=== PATIENT | female | born 1955 | race Caucasian/White ===

== ENCOUNTER 2018-04-30 23:31 | Inpatient (IN) ==
[2018-05-01] MEDS ORDERED: *HR* Labetalol 20 MG/4 ML SYRINGE IVP ONE ×2 (00:09→00:52)
--- NOTE | 2018-05-01 00:18 | Emergency Department Note ---
Disposition Clinical Impression: Bigpatel, Hypertensive urgency Disposition: Admitted As Inpatient Condition: Good Referrals: Pillo Stokes DO [Primary Care Provider] - Forms: ED Satisfaction Letter Arrhythmia/Palpitations HPI - General Chief Complaint: ED Arrhythmia/Palpitations Stated Complaint: Heart Palpitations Time Seen by Provider: 04/30/18 23:33 Source: family Mode of arrival: private vehicle Limitations: no limitations Nursing Notes Reviewed: Yes Vital Signs Reviewed: Yes - History of Present Illness HPI Narrative: 63-year-old female history of hypertension although not currently treated presenting with a complaint of palpitations. Symptoms began at 9:30 this evening. Reports she was at rest and then started feeling a pounding sensation in her chest. No prior history of arrhythmia or CAD. Denies any recent changes in medications with the exception of stopping her antihypertensive several months ago after normal readings. She was sick with a URI last week that resolved. States that whenever she feels these palpitations she feels lightheaded but no syncopal episodes. No other complaints. Pt Subjective Complaint: palpitations Onset (ago): hour(s) Duration: constant Context: occurred during rest Associated symptoms: Reports: near-syncope. Denies: chest pain, shortness of breath, syncope, nausea, vomiting, diaphoresis - Related Data Home Medications Medication Instructions Recorded Confirmed Aspirin [Lo-Dose Aspirin EC] 81 mg PO DAILY 01/17/17 01/17/17 Cholecalciferol (D-3) [Vitamin D] 5,000 unit PO DAILY 01/17/17 01/17/17 Estradiol [Yuvafem] 10 mcg VG QWEEK 01/17/17 01/17/17 Omeprazole [PriLOSEC] 40 mg PO DAILY 01/17/17 01/17/17 Sucralfate [Carafate] 1 gm PO QIDAC 01/17/17 01/17/17 Valsartan [Diovan] 80 mg PO DAILY 01/17/17 01/17/17 Previous Rx's Medication Instructions Recorded Docusate [Colace] 100 mg PO BID #30 capsule 01/17/17 OxyCODONE/APAP 5/325 [Percocet 1 each PO Q4HR PRN #30 tablet 01/17/17 5/325 MG] Allergies Allergy/AdvReac Type Severity Reaction Status Date / Time gabapentin AdvReac Palpitation Verified 05/01/18 00:20 s All systems ED: reviewed and negative except as stated. Constitutional: Denies: fever Cardiovascular: Reports: palpitations. Denies: chest pain Respiratory: Denies: cough, dyspnea Gastrointestinal: Denies: abdominal pain, nausea, vomiting Past Medical History - Past Medical History Attestation: Yes The following information was validated with the patient. Source: patient Medical history: Reports: hyperlipidemia, hypertension Surgical history: Reports: orthopedic, other Psychiatric history: Reports: no psych history - Social History Smoking Status: Never smoker Smokeless Tobacco Status: No Alcohol use: Reports: none Drug use: Reports: none Physical Exam - General Limitations: no limitations General appearance: alert, in no apparent distress - Head Head exam: atraumatic, normocephalic, normal inspection - Eye Eye exam: Present: normal appearance - ENT ENT exam: normal exam - Neck Neck exam: Present: normal inspection - Chest Chest inspection: Present: normal inspection, symmetric chest wall rise - Respiratory Respiratory exam: Present: normal lung sounds bilaterally - Cardiovascular Cardiovascular exam: Present: regular rate, irregular rhythm, normal heart sounds - Abdominal Exam Abdominal exam: Present: soft, Non-Tender. Absent: tenderness, distention, guarding, rigidity - Extremities Exam Extremities exam: Present: normal inspection, full ROM - Expanded Upper Extremity Exam Shoulder exam: Present: normal inspection, full ROM Arm exam: Present: normal inspection, full ROM Elbow exam: Present: normal inspection, full ROM Forearm/Wrist exam: Present: normal inspection, full ROM Hand exam: Present: normal inspection, full ROM - Expanded Lower Extremity Exam Hip/Pelvis exam: Present: normal inspection, full ROM Upper leg exam: Present: normal inspection, full ROM Knee exam: Present: normal inspection, full ROM Lower leg exam: Present: normal inspection, full ROM Ankle exam: Present: normal inspection, full ROM Foot/toe exam: Present: normal inspection, full ROM - Skin Skin exam: Present: warm, dry Course Course Narrative: Patient seen and examined. Vital signs reviewed. Plan for EKG, chest x-ray as well as labs including troponin, magnesium, TSH. - Reevaluation(s) Reevaluation #1: The patient continues to have rebound hypertension after multiple doses of labetalol. - Consultations Consultation #1: I discussed this case with the on-call newspaper carrier Dr. Soto. Discussed the patient's history, vitals, EKG and current workup. Concern is ST elevation in aVR with what appears to be mild diffuse depressive features. Plan to send the EKG for cardiology review. Although this is a potential STEMI equivalent, does not recommend any acute intervention as the patient's only symptom at this time is palpitations. Recommends antihypertensive control at this point with Lopressor or labetalol. Vital Signs Temperature 98.1 F 04/30/18 23:34 Pulse Rate 57 04/30/18 23:34 Respiratory Rate 18 04/30/18 23:34 Blood Pressure 204/99 04/30/18 23:34 O2 Sat by Pulse Oximetry 100 04/30/18 23:34 Temperature 98.1 F 04/30/18 23:34 Pulse Rate 58 05/01/18 01:19 Respiratory Rate 16 05/01/18 01:19 Blood Pressure 187/117 05/01/18 01:19 O2 Sat by Pulse Oximetry 100 05/01/18 01:19 Oxygen Delivery Oxygen Delivery Room Air Arrhythmia/Palpitations - MDM Narrative Medical decision making narrative: 63-year-old female presenting with palpitations found to have bigeminy. She is hemodynamically stable. Her workup is grossly unremarkable with the exception of a questionable nodule on chest x-ray. This case was discussed with cardiology. Recommended hypertensive management. She received 2 doses of labetalol and then was started on a nicardipine drip for refractory hypertension. Received oral potassium as well. She is admitted to the hospitalist service for further management. - Lab Data Lab results reviewed: Yes I reviewed the patient's lab results. Result diagrams: 04/30/18 23:39 04/30/18 23:39 Lab Results 04/30/18 04/30/18 04/30/18 Range/Units 23:39 23:39 23:39 WBC 9.9 (4.3-11.1) K/mcL RBC 4.99 H (3.82-4.97) M/mcL Hgb 14.6 (11.5-15.4) g/dL Hct 44.5 (35.3-44.9) % MCV 89.2 (83.0-100.0) fL MCH 29.3 (28.0-33.3) pg MCHC 32.8 (31.6-35.5) g/dL RDW 12.8 (11.5-14.5) % Plt Count 366 (140-400) K/mcL MPV 10.2 (9.4-12.4) fL Immature Gran % 0.2 (0-4) % Seg Neutrophils % 55.8 % Lymphocytes % 36.0 % Monocytes % 6.3 % Eosinophils % 1.0 % Basophils % 0.7 % Neutrophils # 5.5 (1.6-8.9) K/mcL Lymphocytes # 3.6 (0.6-4.6) K/mcL Monocytes # 0.6 (0.0-1.3) K/mcL Eosinophils # 0.1 (0.0-0.6) K/mcL Basophils # 0.1 (0.0-0.2) K/mcL PT (9.4-12.1) Seconds INR APTT (26.0-36.0) Seconds Sodium 142 (136-145) mEq/L Potassium 3.2 L (3.5-5.1) mEq/L Chloride 103 (98-107) mEq/L Carbon Dioxide 25 (23-29) mEq/L BUN 15 (8-23) mg/dL Creatinine 0.85 (0.60-1.20) mg/dL Est GFR ( Amer) > 60 (> 60) Est GFR (Non-Af Amer) > 60 (> 60) BUN/Creatinine Ratio 18 (6-26) Glucose 217 H (70-105) mg/dL Calculated Osmolality 301 H (280-300) Calcium 9.9 (8.6-10.3) mg/dL Magnesium (1.6-2.6) mg/dL Troponin I < 0.03 (< 0.04) ng/mL TSH 4.117 (0.340-5.600) mcIU/mL Specimen Rejected Volume 05/01/18 05/01/18 Range/Units 00:00 00:28 WBC (4.3-11.1) K/mcL RBC (3.82-4.97) M/mcL Hgb (11.5-15.4) g/dL Hct (35.3-44.9) % MCV (83.0-100.0) fL MCH (28.0-33.3) pg MCHC (31.6-35.5) g/dL RDW (11.5-14.5) % Plt Count (140-400) K/mcL MPV (9.4-12.4) fL Immature Gran % (0-4) % Seg Neutrophils % % Lymphocytes % % Monocytes % % Eosinophils % % Basophils % % Neutrophils # (1.6-8.9) K/mcL Lymphocytes # (0.6-4.6) K/mcL Monocytes # (0.0-1.3) K/mcL Eosinophils # (0.0-0.6) K/mcL Basophils # (0.0-0.2) K/mcL PT 12.2 H (9.4-12.1) Seconds INR 1.1 APTT 35.2 (26.0-36.0) Seconds Sodium (136-145) mEq/L Potassium (3.5-5.1) mEq/L Chloride (98-107) mEq/L Carbon Dioxide (23-29) mEq/L BUN (8-23) mg/dL Creatinine (0.60-1.20) mg/dL Est GFR ( Amer) (> 60) Est GFR (Non-Af Amer) (> 60) BUN/Creatinine Ratio (6-26) Glucose (70-105) mg/dL Calculated Osmolality (280-300) Calcium (8.6-10.3) mg/dL Magnesium 2.1 (1.6-2.6) mg/dL Troponin I (< 0.04) ng/mL TSH (0.340-5.600) mcIU/mL Specimen Rejected - Radiology Data Radiology results reviewed: Yes I reviewed the patient's radiology results. Chest X-Ray 04/30/18 23:39 IMPRESSION: No acute cardiopulmonary disease. Small irregular nodule projected in the lateral left lung as above. This may be related to the anterior left 3rd costochondral junction. If a prior chest x-ray is available, comparison would be helpful. D/ / Reagan Vickers MD / Reagan Vickers MD Interpreting Provider: Reagan Vickers MD - EKG Data EKG attestation: Yes I reviewed and interpreted this EKG. EKG results narrative: EKG demonstrates bigeminy with a rate of 108. Normal axis. Normal R-wave progression. There is a [address] elevation in lead aVR with diffuse ST depression. No prior EKG for comparison. S.Juana - Audie Situation: Demographics, MOA Background: Presenting Complaint, Relevant PMH, Meds, & Allergies Assessment: Vital Signs, Course and respsone to treatment, Exam Concerns, Patient/Family Expectation, Pertinant Lab Results Recommendation: Barrier(s) to disposition, Recommendation based on pending studies, treatments, or consults SConcha Report Given to: Dr. Sheridan Bronson Repor Time: 01:38
[2018-05-01 00:24] LABS: Basophils # 0.1 K/mcL (0.0-0.2); Basophils % 0.7 %; Eosinophils # 0.1 K/mcL (0.0-0.6); Hematocrit 44.5 % (35.3-44.9); Hemoglobin 14.6 g/dL (11.5-15.4); Immature Granulocytes % 0.2 % (0-4); Lymphocytes # 3.6 K/mcL (0.6-4.6); Mean Corpuscular HGB Conc 32.8 g/dL (31.6-35.5); Mean Corpuscular Hemoglobin 29.3 pg (28.0-33.3); Mean Corpuscular Volume 89.2 fL (83.0-100.0); Mean Platelet Volume 10.2 fL (9.4-12.4); Monocytes # 0.6 K/mcL (0.0-1.3); Monocytes % 6.3 %; Neutrophils # 5.5 K/mcL (1.6-8.9); Platelet Count 366 K/mcL (140-400); Red Blood Count 4.99 M/mcL (3.82-4.97); Red Cell Distribution Width 12.8 % (11.5-14.5); Segmented Neutrophils % 55.8 %
[2018-05-01 00:34] LABS: BUN/Creatinine Ratio 18 (6-26); Blood Urea Nitrogen 15 mg/dL (8-23); Calcium 9.9 mg/dL (8.6-10.3); Carbon Dioxide 25 mEq/L (23-29); Chloride 103 mEq/L (98-107); Glucose 217 mg/dL (70-105); Osmolality,Calculated 301 (280-300); Potassium 3.2 mEq/L (3.5-5.1); Sodium 142 mEq/L (136-145); eGFR For Non-African Americans > 60 (> 60)
[2018-05-01 00:36] LABS: Troponin I < 0.03 ng/mL (< 0.04)
[2018-05-01 00:47] LABS: Thyroid Stimulating Hormone 4.117 mcIU/mL (0.340-5.600)
[2018-05-01 00:47] LABS: INR 1.1; Prothrombin Time 12.2 Seconds (9.4-12.1)
[2018-05-01 00:49] LABS: Activated Partial Thrombo Time 35.2 Seconds (26.0-36.0)
[2018-05-01] MEDS ORDERED: Ondansetron 4 MG/2 ML VIAL IVP ONE (00:52)
--- NOTE | 2018-05-01 01:33 | Emergency Department Note ---
Disposition Clinical Impression: Bigeminy, Hypertensive urgency Disposition: Admitted As Inpatient Condition: Good General Adult HPI - General Chief complaint: ED Arrhythmia/Palpitations Stated complaint: Heart Palpitations Time Seen by Provider: 04/30/18 23:33 Source: family Mode of arrival: private vehicle Limitations: no limitations - History of Present Illness Pain Scale: 0 - Related Data Home Medications Medication Instructions Recorded Confirmed RX: Aspirin [Lo-Dose Aspirin EC] 81 mg PO DAILY 01/17/17 01/17/17 RX: Cholecalciferol (D-3) [Vitamin 5,000 unit PO DAILY 01/17/17 01/17/17 D] RX: Estradiol [Yuvafem] 10 mcg VG QWEEK 01/17/17 01/17/17 RX: Omeprazole [PriLOSEC] 40 mg PO DAILY 01/17/17 01/17/17 RX: Sucralfate [Carafate] 1 gm PO QIDAC 01/17/17 01/17/17 RX: Valsartan [Diovan] 80 mg PO DAILY 01/17/17 01/17/17 Previous Rx's Medication Instructions Recorded Docusate [Colace] 100 mg PO BID #30 capsule 01/17/17 OxyCODONE/APAP 5/325 [Percocet 1 each PO Q4HR PRN #30 tablet 01/17/17 5/325 MG] Allergies Allergy/AdvReac Type Severity Reaction Status Date / Time gabapentin AdvReac Palpitation Verified 05/01/18 00:20 s Constitutional: Denies: fever Cardiovascular: Reports: palpitations. Denies: chest pain Respiratory: Denies: cough, dyspnea Gastrointestinal: Denies: abdominal pain, nausea, vomiting Past Medical History - Past Medical History Medical history: Reports: hyperlipidemia, hypertension Surgical history: Reports: orthopedic, other Psychiatric history: Reports: no psych history - Social History Smoking Status: Never smoker Smokeless Tobacco Status: No Alcohol use: Reports: none Drug use: Reports: none Physical Exam - General Limitations: no limitations General appearance: alert, in no apparent distress Course Vital Signs Temperature 98.1 F 04/30/18 23:34 Pulse Rate 57 04/30/18 23:34 Respiratory Rate 18 04/30/18 23:34 Blood Pressure 204/99 04/30/18 23:34 O2 Sat by Pulse Oximetry 100 04/30/18 23:34 Temperature 98.7 F 05/01/18 02:21 Pulse Rate 86 05/01/18 04:01 Respiratory Rate 14 05/01/18 04:01 Blood Pressure 87/54 05/01/18 04:01 O2 Sat by Pulse Oximetry 96 05/01/18 04:01 Oxygen Delivery Oxygen Delivery Room Air Medical Decision Making - Lab Data Result diagrams: 04/30/18 23:39 04/30/18 23:39 Lab Results 04/30/18 04/30/18 04/30/18 Range/Units 23:39 23:39 23:39 WBC 9.9 (4.3-11.1) K/mcL RBC 4.99 H (3.82-4.97) M/mcL Hgb 14.6 (11.5-15.4) g/dL Hct 44.5 (35.3-44.9) % MCV 89.2 (83.0-100.0) fL MCH 29.3 (28.0-33.3) pg MCHC 32.8 (31.6-35.5) g/dL RDW 12.8 (11.5-14.5) % Plt Count 366 (140-400) K/mcL MPV 10.2 (9.4-12.4) fL Immature Gran % 0.2 (0-4) % Seg Neutrophils % 55.8 % Lymphocytes % 36.0 % Monocytes % 6.3 % Eosinophils % 1.0 % Basophils % 0.7 % Neutrophils # 5.5 (1.6-8.9) K/mcL Lymphocytes # 3.6 (0.6-4.6) K/mcL Monocytes # 0.6 (0.0-1.3) K/mcL Eosinophils # 0.1 (0.0-0.6) K/mcL Basophils # 0.1 (0.0-0.2) K/mcL PT (9.4-12.1) Seconds INR APTT (26.0-36.0) Seconds Sodium 142 (136-145) mEq/L Potassium 3.2 L (3.5-5.1) mEq/L Chloride 103 (98-107) mEq/L Carbon Dioxide 25 (23-29) mEq/L BUN 15 (8-23) mg/dL Creatinine 0.85 (0.60-1.20) mg/dL Est GFR ( Amer) > 60 (> 60) Est GFR (Non-Af Amer) > 60 (> 60) BUN/Creatinine Ratio 18 (6-26) Glucose 217 H (70-105) mg/dL Calculated Osmolality 301 H (280-300) Calcium 9.9 (8.6-10.3) mg/dL Magnesium (1.6-2.6) mg/dL Troponin I < 0.03 (< 0.04) ng/mL TSH 4.117 (0.340-5.600) mcIU/mL Specimen Rejected Volume 05/01/18 05/01/18 Range/Units 00:00 00:28 WBC (4.3-11.1) K/mcL RBC (3.82-4.97) M/mcL Hgb (11.5-15.4) g/dL Hct (35.3-44.9) % MCV (83.0-100.0) fL MCH (28.0-33.3) pg MCHC (31.6-35.5) g/dL RDW (11.5-14.5) % Plt Count (140-400) K/mcL MPV (9.4-12.4) fL Immature Gran % (0-4) % Seg Neutrophils % % Lymphocytes % % Monocytes % % Eosinophils % % Basophils % % Neutrophils # (1.6-8.9) K/mcL Lymphocytes # (0.6-4.6) K/mcL Monocytes # (0.0-1.3) K/mcL Eosinophils # (0.0-0.6) K/mcL Basophils # (0.0-0.2) K/mcL PT 12.2 H (9.4-12.1) Seconds INR 1.1 APTT 35.2 (26.0-36.0) Seconds Sodium (136-145) mEq/L Potassium (3.5-5.1) mEq/L Chloride (98-107) mEq/L Carbon Dioxide (23-29) mEq/L BUN (8-23) mg/dL Creatinine (0.60-1.20) mg/dL Est GFR ( Amer) (> 60) Est GFR (Non-Af Amer) (> 60) BUN/Creatinine Ratio (6-26) Glucose (70-105) mg/dL Calculated Osmolality (280-300) Calcium (8.6-10.3) mg/dL Magnesium 2.1 (1.6-2.6) mg/dL Troponin I (< 0.04) ng/mL TSH (0.340-5.600) mcIU/mL Specimen Rejected Attestation Statement - Attestation Attestation: I examined this patient and my medical decision-making was reviewed with the Resident Physician. I agree with the documented findings, disposition and treatment plan as described except to the extent set forth below. 63 magalis old female presents to the ED with complaints of palpitations and it appears shes in bigeminy with global ST depression ad AVR elecvation. cards has been consulted who reccomended therapy for HTN management with beta blockers. Yulisa has a negative troponin. She will be admitted to medicine
[2018-05-01] MEDS: niCARdipine 40 MG/200 ML MLS IVC SCH ×2 (01:50→15:12)
[2018-05-01] MEDS ORDERED: Naloxone 0.4 MG/ML INJ IVP PRN (06:32)
--- NOTE | 2018-05-01 06:44 | Internal Med History&Physical ---
Date of Encounter: 05/01/18 Time of Encounter: 03:55 Internal Medicine - H&P: HPI Chief complaint: Palpitations, hypertensive urgency Admitted From: Emergency Dept Plans for Post Hospital Care: Home History of present illness: Ms. Cruz is a 63 year old female Patient presented to the emergency room with complaint of palpitations. She says she was at home watching TV when she felt a pounding sensation in her ches t. She denies chest pain during this time, and has had palpitations of some sort in the past but this episode was more intense. She denies history of cardiac problems in the past. In the emergency room patient's initial vital signs showed a blood pressure of 204/99, CBC was within normal limits and BMP showed a potassium of 3.2 and a glucose of 217. Initial troponin was undetectable. Patient's TSH was 4.117. Magnesium level was 2.1. A chest x-ray was obtained that showed no acute cardiopulmonary disease. There was however a small irregular nodule projected in the lateral left lung. Potentially could be related to anterior left third costochondral junction. An EKG was performed that showed bigeminy with a rate of 108. There is also a [address] elevation in lead aVR as well as diffuse ST depressions. These results were reviewed with on-call cardiology Dr. Soto. It was decided that although this is a potential STEMI equivalent, acute intervention was declined as patient's only symptom at that time was palpitations. He did recommend hypertensive control with Lopressor or lab etalol. After 2 doses of labetalol a Cardene drip was started due to refractory hypertension. Patient was also given oral potassium as well, and admitted to the hospital for further management. Upon my evaluation, patient is resting comfortably in the hospital bed in no acute distress. She has not had any further palpitations. Her blood pressure has improved, and the Cardene drip has been stopped at this point. She denies chest pain, abdominal pain, nausea, vomiting, diarrhea and constipation. I discussed with her her elevated blood sugar, and she denies history of diabetes. Past Med Surg Social Fam HX - Past Medical History Medical history: hyperlipidemia, hypertension Additional medical history: vitamin D Deficiency Psychiatric history: no psych history - Past Surgical History Surgical History: orthopedic, other Additional surgical history: D & C. Bilateral Shoulder Scopes. EGD - Social History Smoking Status: Never smoker Smokeless Tobacco Status: No Alcohol use: none Drug use: none Internal Medicine - H&P: Meds Aspirin [Lo-Dose Aspirin EC] 81 mg PO DAILY 01/17/17 [History] Cholecalciferol (D-3) [Vitamin D] 5,000 unit PO DAILY 01/17/17 [History] Docusate [Colace] 100 mg PO BID #30 capsule 01/17/17 [Rx] Estradiol [Yuvafem] 10 mcg VG QWEEK 01/17/17 [History] Omeprazole [PriLOSEC] 40 mg PO DAILY 01/17/17 [History] OxyCODONE/APAP 5/325 [Percocet 5/325 MG] 1 each PO Q4HR PRN #30 tablet 01/17/17 [Rx] Sucralfate [Carafate] 1 gm PO QIDAC 01/17/17 [History] Valsartan [Diovan] 80 mg PO DAILY 01/17/17 [History] Allergy/AdvReac Type Severity Reaction Status Date / Time gabapentin AdvReac Palpitation Verified 05/01/18 00:20 s All Systems PM: A 10-system review of systems was performed and is negative for pertinent findings except as documented above in the HPI. - Constitutional Vitals: Temp Pulse Resp BP Pulse Ox 98.7 F 76 14 125/82 97 05/01/18 02:21 05/01/18 06:21 05/01/18 06:00 05/01/18 06:00 05/01/18 06:00 General appearance: Present: cooperative, A&O X 3, pleasant, no acute distress, answers questions appropriately Exam: - - Head Head exam: Present: normal inspection - Eye Eye exam: Present: EOMI, normal appearance - Neck Neck exam general surgery: Present: full ROM - Respiratory Respiratory exam: Present: CTAB. Absent: chest wall tenderness, rales, respiratory distress, rhonchi, wheezes - Cardiovascular Cardiovascular exam: Present: RRR. Absent: diastolic murmur, systolic murmur - GI/Abdominal GI/Abdominal exam: Present: normal bowel sounds, soft. Absent: tenderness - Extremities Exam Extremities exam: Present: warm, radial pulses palpable and symmetrical. Absent: calf tenderness, pedal edema, tenderness - Neurological Exam Neurological exam: Present: no focal deficits, strengths equal and symetr throughout, pronater drift. Absent: motor sensory deficit, facial droop, speech deficit - Skin Skin exam: Present: dry, normal color, warm Internal Med - H&P Results - Labs CBC & Chem 7: 04/30/18 23:39 04/30/18 23:39 Labs: Short CBC 04/30/18 Range/Units 23:39 WBC 9.9 (4.3-11.1) K/mcL Hgb 14.6 (11.5-15.4) g/dL Hct 44.5 (35.3-44.9) % Plt Count 366 (140-400) K/mcL Neutrophils # 5.5 (1.6-8.9) K/mcL BMP 04/30/18 23:39 Sodium 142 Potassium 3.2 L Chloride 103 Carbon Dioxide 25 BUN 15 Creatinine 0.85 Glucose 217 H Calcium 9.9 Cardiac Enzymes 04/30/18 Range/Units 23:39 Troponin I < 0.03 (< 0.04) ng/mL - Impressions ITS Impressions Chest X-Ray 04/30/18 23:39 IMPRESSION: No acute cardiopulmonary disease. Small irregular nodule projected in the lateral left lung as above. This may be related to the anterior left 3rd costochondral junction. If a prior chest x-ray is available, comparison would be helpful. D/ / Reagan Vickers MD / Reagan Vickers MD Interpreting Provider: Reagan Vickers MD - Assessment and plan (1) Hypertensive urgency Current Visit: Yes Status: Acute Assessment and plan: Patient's initial blood sugar significantly elevated. Was started on a Cardene drip, and blood pressures improved. This drip has stopped at this point, this patient's blood pressure is now within normal limits continue to monitor blood sugar.Cardiology called from the emergency room, will see the patient in the morning. Continue to monitor blood pressure Cardiology consult (2) Bigeminy Current Visit: Yes Status: Acute Assessment and plan: Patient did have an abnormal EKG, including some ST changes. Cardiology was notified from the ER but acute intervention was not pursued as patient's only presenting symptom was palpitations. Patient's palpitations have now resolved. Continue cardiac monitoring Continue to trend troponins Cardiology consult Echocardiogram in the morning (3) Elevated blood sugar Current Visit: Yes Status: Acute Assessment and plan: Patient denies history of diabetes. Blood sugars have been elevated on all glucose checks. A1c in the morning Patient currently nothing by mouth (4) DVT prophylaxis Current Visit: Yes Status: Acute Assessment and plan: Subcutaneous heparin - Time Spent With Patient Total time spent is greater than 50% in coordination of care (as documented) at patient's floor/unit and/or counseling patient: Greater than 35 minutes
--- NOTE | 2018-05-01 09:58 | Cardiology Consult Note ---
<Christo Hinds - Last Filed: 05/01/18 13:52> Date of Encounter: 05/01/18 Time of Encounter: 09:55 Assessment and Plan Discussion w patient/family: The assessment and plan as outlined above was discussed with the patient and/or family members who expressed understanding and agreement. All questions were answered. Thank you for involving us in the care of your patient. Please call with any questions. History of Present Illness Consult date: 05/01/18 Consult reason: [address] segment elevation in lead aVR with diffuse depressions, bigeminy Chief complaint: Palpitations History of present illness: Ms. Cruz is a 63 year old female who presented to [facility] ED on 04/30/2018 for palpitations. Patient states that she has had multiple recurrent episodes of palpitations in the past but this was her worst experience to this point. Patient denies any history of cardiac disease. Patient past medical history significant for hypertension and hyperlipidemia. Notable medications include aspirin. Patient states that she recently stopped valsartan at the direction of her PCP due to normal blood pressures in that her blood pressures have not been elevated recently until yesterday. Notable findings and ED included a blood pressure of 204/99 while in ED. Negative troponin. EKG reveals a [address] segment elevation in lead aVR with diffuse depressions as well as multiple PVCs in a bigeminal rhythm. Labetalol was given on ED and patient was started on Cardene drip. Echocardiogram ordered. Cardene drip stopped this morning at 0400 hrs-blood pressure stable to this point > Repeat troponin at 1.54 > Echocardiogram shows global and left ventricular systolic and diastolic dysfunction with ejection fraction of 40-45% > We will repeat EKG at this time in the setting of normal blood pressures and reevaluate. > Continue heparin drip Past Med Surg Social Fam HX - Past Medical History Medical history: hyperlipidemia, hypertension Additional medical history: vitamin D Deficiency Psychiatric history: no psych history - Past Surgical History Surgical History: orthopedic, other Additional surgical history: D & C. Bilateral Shoulder Scopes. EGD - Social History Smoking Status: Never smoker Smokeless Tobacco Status: No Alcohol use: none Drug use: none Medications and Allergies Docusate [Colace] 100 mg PO BID #30 capsule 01/17/17 [Rx] OxyCODONE/APAP 5/325 [Percocet 5/325 MG] 1 each PO Q4HR PRN #30 tablet 01/17/17 [Rx] RX: Aspirin [Lo-Dose Aspirin EC] 81 mg PO DAILY 01/17/17 [History] RX: Cholecalciferol (D-3) [Vitamin D] 5,000 unit PO DAILY 01/17/17 [History] RX: Estradiol [Yuvafem] 10 mcg VG QWEEK 01/17/17 [History] RX: Omeprazole [PriLOSEC] 40 mg PO DAILY 01/17/17 [History] RX: Sucralfate [Carafate] 1 gm PO QIDAC 01/17/17 [History] RX: Valsartan [Diovan] 80 mg PO DAILY 01/17/17 [History] Allergy/AdvReac Type Severity Reaction Status Date / Time gabapentin AdvReac Palpitation Verified 05/01/18 00:20 s All Systems Review: The remainder of the systems were reviewed and are negative Review of Systems: Patient states that she is asymptomatic at this point has no further questions, complaints or concerns Patient denies chest pain, shortness of breath, abdominal pain, edema - Constitutional Constitutional: weight loss (Patient reports 60 pound weight loss gradually over 2 years post cholecystectomy. Patient admits to early satiety), no night sweats - Cardiovascular Cardiovascular: no leg edema Physical Examination Vital Signs, Last 4 Hours Temp Pulse Resp BP Pulse Ox 05/01/18 08:13 97.7 F 05/01/18 08:00 96 05/01/18 07:43 97.7 F 91 14 139/97 99 05/01/18 06:21 76 05/01/18 06:00 81 14 125/82 97 General: Conversant, No Apparent Distress HEENT: Atraumatic, Normocephaly, Mucus Membranes Moist Neck: No JVD Cardiac: Reg Rate and Rhythm, Normal S1 and S2, No Murmur Lungs: Normal Breath Sounds, No Wheeze, Rales, Rhonchi Neuro: Alert and responsive, No focal deficits noted Abdomen: Soft, Non-Tender Skin: No rashes noted on visualized skin Musculoskeletal: No Chest Wall Tenderness Extremities: No Clubbing, No Cyanosis, No Edema, Normal Pulses Results 05/01/18 09:30 05/01/18 09:30 Lab Results 04/30/18 04/30/18 05/01/18 23:39 23:39 00:00 WBC 9.9 Hgb 14.6 Hct 44.5 Plt Count 366 INR APTT Sodium 142 Potassium 3.2 L Chloride 103 Carbon Dioxide 25 BUN 15 Creatinine 0.85 Glucose 217 H Calcium 9.9 Magnesium 2.1 Troponin I < 0.03 TSH 4.117 05/01/18 00:28 WBC Hgb Hct Plt Count INR 1.1 APTT 35.2 Sodium Potassium Chloride Carbon Dioxide BUN Creatinine Glucose Calcium Magnesium Troponin I TSH - Imaging and Cardiology Chest Xray: report reviewed Echo: report reviewed - EKG Interpretation EKG results cardiology: personally reviewed, other (We will repeat EKG) Consult Discharge Plan - Plan Referrals: Pillo Stokes DO [Primary Care Provider] - <Chucky Cerna - Last Filed: 05/01/18 19:06> Date of Encounter: 05/01/18 - Attending Attestation I examined this patient and my medical decision-making was reviewed with the Resident Physician. I agree with the documented findings, disposition and treatment plan as described except to the extent set forth below. 63-year-old female presents to the emergency department with hypertensive emergency noted to have troponins of 1.54 and an ejection fraction of 40-45%. She has diffuse ST changes nonspecific with some mild ST depressions. Patient completely asymptomatic denies any chest pain, shortness of breath, dyspnea on exertion, orthopnea, PND, presyncope or syncope. Vision took cold medicine containing pseudoephedrine the day of her hypertensive emergency. She has also been taken off valsartan due to recall. Possible hypertensive cardiomyopathy demand ischemia versus underlying coronary artery disease. We will continue to trend cardiac markers and consider an ischemic workup invasive versus noninvasive pending hospital stay. Assessment and Plan Discussion w patient/family: The assessment and plan as outlined above was discussed with the patient and/or family members who expressed understanding and agreement. All questions were answered. Thank you for involving us in the care of your patient. Please call with any questions. History of Present Illness History of present illness: Ms. Cruz is a 63 year old female All Systems Review: The remainder of the systems were reviewed and are negative Physical Examination Vital Signs, Last 4 Hours Temp Pulse Resp BP 05/01/18 16:47 98.2 F 97 96 107/78 Results 05/01/18 09:30 05/01/18 09:30 Lab Results 04/30/18 04/30/18 05/01/18 23:39 23:39 00:00 WBC 9.9 Hgb 14.6 Hct 44.5 Plt Count 366 INR APTT Sodium 142 Potassium 3.2 L Chloride 103 Carbon Dioxide 25 BUN 15 Creatinine 0.85 Glucose 217 H Calcium 9.9 Magnesium 2.1 Troponin I < 0.03 TSH 4.117 05/01/18 05/01/18 05/01/18 00:28 09:30 09:30 WBC 11.1 Hgb 15.0 Hct 45.3 H Plt Count 372 INR 1.1 APTT 35.2 Sodium Potassium Chloride Carbon Dioxide BUN Creatinine Glucose Calcium Magnesium Troponin I 1.54 H* TSH 05/01/18 05/01/18 09:30 14:50 WBC Hgb Hct Plt Count INR APTT Sodium 143 Potassium 4.4 D Chloride 105 Carbon Dioxide 29 BUN 13 Creatinine 0.75 Glucose 147 H Calcium 10.0 Magnesium Troponin I 1.55 H* TSH
[2018-05-01 10:00] LABS: Hematocrit 45.3 % (35.3-44.9); Mean Corpuscular HGB Conc 33.1 g/dL (31.6-35.5); Mean Corpuscular Hemoglobin 29.3 pg (28.0-33.3); Mean Corpuscular Volume 88.5 fL (83.0-100.0); Mean Platelet Volume 10.2 fL (9.4-12.4); Platelet Count 372 K/mcL (140-400); Red Blood Count 5.12 M/mcL (3.82-4.97); Red Cell Distribution Width 12.7 % (11.5-14.5)
[2018-05-01 10:10] LABS: Estimated Average Glucose 117 mg/dl; Hemoglobin A1C 5.7 %
[2018-05-01 10:14] LABS: BUN/Creatinine Ratio 17 (6-26); Blood Urea Nitrogen 13 mg/dL (8-23); Carbon Dioxide 29 mEq/L (23-29); Chloride 105 mEq/L (98-107); Glucose 147 mg/dL (70-105); Osmolality,Calculated 299 (280-300); Potassium 4.4 mEq/L (3.5-5.1); Sodium 143 mEq/L (136-145); eGFR For Non-African Americans > 60 (> 60)
[2018-05-01] MEDS ORDERED: *HR* Heparin 5,000 UNIT/ML VIAL IVP PRN ×2 (10:30)
[2018-05-01] MEDS ORDERED: *HR* Heparin 5,000 UNIT/ML VIAL IVP ONE (10:30)
--- NOTE | 2018-05-01 10:34 | Internal Med Progress Note ---
Hospitalist Progress Note - Encounter Date of Encounter: 05/01/18 Time of Encounter: 10:31 - Subjective Interval History: Ms. Cruz is a 63 year old female known past medical history of hypertension, hyperlipidemia who is off the BP meds ( Valsartan ) 17 months ago since her BP well controlled, now she presented to ER with the sudden onset of palpitations and chest heaviness and discomfort. In the emergency room patient's initial vital signs showed a blood pressure of 204/99 and initial troponin was undetectable. Her EKG showed bigeminy with a rate of 108. Patient was admitted in the ICU and started her on Nicardipine drip.She is off the Nicardipine gtt since 3 AM, now her BP in 130's with out any meds. She denied any CP / SOB. She denied any PND, orthopnea and MARKS. - Exam Vitals: Temp Pulse Resp BP Pulse Ox 97.7 F 69 14 119/82 99 05/01/18 08:13 05/01/18 10:00 05/01/18 10:00 05/01/18 10:00 05/01/18 10:00 Exam: Gen: Alert, awake, Oriented to time,place and person Chest: Diminished breath sounds B/L, No wheezing, No crackles, No rales Heart: S1S2+ RRR No murmurs Abd: Soft, NT, BS +, No organomegaly Ext: No edema, pulses are palpable, No calf tenderness Neuro : Benign findings Skin: No rash. - Assessment and Plan (1) NSTEMI (non-ST elevated myocardial infarction) Current Visit: Yes Status: Acute Assessment and Plan: Her 2nd set troponin went upto 1.54 Her 2 D Echo showed LVEF 40-45%, moderate global and segmental left ventricle systolic dysfunction noticed Started on ASA, BB ( Coreg ), If BP allows will add ACEI Card is consulted Possible LHC today Cont NPO for now Started on Heparin gtt Patient does need to stay in the hospital more than 2 midnights due to her complex medical problems. So we will change her to full admission today. I did review my colleague Dr. Oliveira H & P including HPI, PMH, PSH, FH, SH, and ROS no changes noticed (2) Systolic CHF, acute Current Visit: Yes Status: Acute Assessment and Plan: Reviewed 2 D Echo showed LVEF 40-45%, moderate global and segmental left ventricle systolic dysfunction noticed Started on ASA, BB ( Coreg ), If BP allows will add ACEI Possible [facility] today ischemic versus non-ischemic cardiac myopathy (3) Bigeminy Current Visit: Yes Status: Acute Assessment and Plan: Improved placed her on beta janine (4) Hypertensive urgency Current Visit: Yes Status: Acute Assessment and Plan: Resolved Off the Nicardipine gtt started on PO Meds Coreg for now If needed will add ACEI / ARB (5) DVT prophylaxis Current Visit: Yes Status: Acute Assessment and Plan: On heparin drip - Time Spent with Patient Total time spent is greater than 50% in coordination of care (as documented) at patient's floor/unit and/or counseling patient: Internal Medicine: Result - Labs CBC & Chem 7: 05/01/18 09:30 05/01/18 09:30 Labs: Short CBC 04/30/18 05/01/18 Range/Units 23:39 09:30 WBC 9.9 11.1 (4.3-11.1) K/mcL Hgb 14.6 15.0 (11.5-15.4) g/dL Hct 44.5 45.3 H (35.3-44.9) % Plt Count 366 372 (140-400) K/mcL Neutrophils # 5.5 (1.6-8.9) K/mcL BMP 04/30/18 05/01/18 23:39 09:30 Sodium 142 143 Potassium 3.2 L 4.4 D Chloride 103 105 Carbon Dioxide 25 29 BUN 15 13 Creatinine 0.85 0.75 Glucose 217 H 147 H Calcium 9.9 10.0 Cardiac Enzymes 04/30/18 05/01/18 Range/Units 23:39 09:30 Troponin I < 0.03 1.54 H* (< 0.04) ng/mL - ABG Interpretation ABG results: PT/INR, D-dimer PT 12.2 Seconds (9.4-12.1) H 05/01/18 00:28 - Impressions Impressions Chest X-Ray 04/30/18 23:39 IMPRESSION: No acute cardiopulmonary disease. Small irregular nodule projected in the lateral left lung as above. This may be related to the anterior left 3rd costochondral junction. If a prior chest x-ray is available, comparison would be helpful. D/ / Reagan Vickers MD / Reagan Vickers MD Interpreting Provider: Reagan Vickers MD Echocardiogram 05/01/18 06:49 Impressions: LVEF 40-45%. Moderate global and segmental left ventricular systolic dysfunction. Mild left ventricular diastolic dysfunction. Normal right ventricular structure and function. Mild tricuspid regurgitation. No pulmonary hypertension. Ordering physician notified via [employer]. Left Ventricular Wall Motion: Rest Echo Findings The apex, apical inferior, basal inferior, apical anterior, mid anterior, basal anterior, apical septal, basal inferior septal, apical lateral, basal anterior lateral, mid anterior septal, mid inferior lateral, basal anterior septal and basal inferior lateral moreland were hypokinetic. The mid inferior and mid inferior septal moreland were akinetic. The mid anterior lateral wall was dyskinetic. Findings: Study Quality * Technically adequate exam. ECG Findings * Normal sinus rhythm. Left Ventricle * LVEF 40-45%. * Normal LV chamber size and wall thickness. * Moderate global and segmental left ventricular systolic dysfunction. * Mild left ventricular diastolic dysfunction. * Definity echo contrast was not used. Right Ventricle * Normal right ventricular structure and function. Left Atrium * Normal left atrial size. Right Atrium * Normal right atrial size. Interatrial Septum * Interatrial septum not well evaluated. Aortic Valve * Trileaflet aortic valve. * Normal aortic valve structure. * No aortic stenosis. * No aortic regurgitation. Mitral Valve * Normal mitral valve structure. * No mitral stenosis. * Trace mitral regurgitation. Tricuspid Valve * Normal tricuspid valve structure. * No tricuspid stenosis. * Mild tricuspid regurgitation. * Estimated RVSP is 30 mmHg. * Estimated RA pressure is 3 mmHg. * No pulmonary hypertension. Pulmonic Valve * Pulmonic valve is not well visualized. * No pulmonic stenosis. * No pulmonic regurgitation. Aorta * Normally sized aortic root. Pericardium * There is no pericardial effusion present. IVC * Normal IVC dimensions and inspiratory collapse. Consult Discharge Plan - Plan Referrals: Pillo Stokes DO [Primary Care Provider] -
[2018-05-01] MEDS: Aspirin Enteric Coated 81 MG Tablet PO SCH (10:51)
[2018-05-01] MEDS: Heparin 25,000 UNIT/500 ML D5W 25,000 UNIT/500 ML BAG IVC SCH (11:01)
[2018-05-01] MEDS ORDERED: *HR* Heparin 10,000 UNIT/10 ML VIAL ONE (13:18)
[2018-05-01] MEDS ORDERED: ISOVUE-370 200 ML INFUS..BTL ONE (13:19)
[2018-05-01] MEDS ORDERED: Nitroglycerin 1,000 MCG/10 ML VIAL IV ONE (13:19)
[2018-05-01] MEDS ORDERED: 0.9 % Sodium Chloride 1,000 ML ONE (13:19)
[2018-05-01] MEDS ORDERED: Heparin 1,000 UNITS/500 mL 500 ML ONE (13:19)
[2018-05-01] MEDS ORDERED: *HR* Heparin 5,000 UNIT/ML VIAL SQ SCH (18:00)
[2018-05-02] MEDS ORDERED: Ondansetron 4 MG/2 ML VIAL IVP ONE (02:22)
[2018-05-02 09:28] LABS: Basophils # 0.1 K/mcL (0.0-0.2); Basophils % 0.6 %; Eosinophils % 0.3 %; Hemoglobin 14.3 g/dL (11.5-15.4); Immature Granulocytes % 0.1 % (0-4); Lymphocytes % 24.7 %; Mean Corpuscular HGB Conc 33.3 g/dL (31.6-35.5); Mean Corpuscular Hemoglobin 29.7 pg (28.0-33.3); Mean Corpuscular Volume 89.4 fL (83.0-100.0); Mean Platelet Volume 10.7 fL (9.4-12.4); Monocytes # 0.4 K/mcL (0.0-1.3); Monocytes % 5.4 %; Neutrophils # 5.5 K/mcL (1.6-8.9); Platelet Count 328 K/mcL (140-400); Red Blood Count 4.81 M/mcL (3.82-4.97); Red Cell Distribution Width 12.9 % (11.5-14.5); Segmented Neutrophils % 68.9 %
[2018-05-02 09:37] LABS: BUN/Creatinine Ratio 24 (6-26); Blood Urea Nitrogen 18 mg/dL (8-23); Calcium 9.8 mg/dL (8.6-10.3); Carbon Dioxide 23 mEq/L (23-29); Chloride 109 mEq/L (98-107); Glucose 127 mg/dL (70-105); Osmolality,Calculated 293 (280-300); Potassium 4.5 mEq/L (3.5-5.1); Sodium 140 mEq/L (136-145); eGFR For Non-African Americans > 60 (> 60)
[2018-05-02] MEDS ORDERED: 0.9 % Sodium Chloride 1,000 ML ONE ×2 (10:11→10:19)
--- NOTE | 2018-05-02 10:11 | Event Note ---
Date of Encounter: 05/02/18 Time of Encounter: 09:00 - Cardiology Event Note PLan for LHC today for NSTEMI, cardiomyopathy, Segmental wall motion abnormalities noted. Risks versus benefits of LHC explained to patient and family, who state understanding and agreeable to proceed. Further recs pending LHC.
[2018-05-02] MEDS ORDERED: *HR* Heparin 10,000 UNIT/10 ML VIAL ONE (10:12)
[2018-05-02] MEDS ORDERED: Heparin 1,000 UNITS/500 mL 500 ML ONE (10:12)
[2018-05-02] MEDS ORDERED: Nitroglycerin 1,000 MCG/10 ML VIAL IV ONE (10:12)
[2018-05-02] MEDS ORDERED: ISOVUE-370 200 ML INFUS..BTL ONE (10:12)
--- NOTE | 2018-05-02 10:14 | Pre-Sedation Evaluation ---
Pre-sedation evaluation - Pre-sedation checklist Date of procedure: 05/02/18 Procedure: [facility] Recent Vitals: Last Vital Signs Temp 97.7 F 05/02/18 07:04 Pulse 73 05/02/18 07:04 Resp 16 05/02/18 07:04 BP 105/70 05/02/18 07:04 Pulse Ox 98 05/02/18 07:04 H&P (including ROS) documented in medical record: No Previous reaction to sedatives/anesthetics: No Dietary Status: NPO after Midnight Airway Assessment: Patient can open mouth completely, TMJ function normal, Micrognathia (under-bite, receding chin) absent, Neck with adequate range of motion Dentition: No loose teeth or bridges Possible difficult airway: No ASA Classification *see protocol: CLASS II-Mild systemic disease Plan of Care: Pt appropriate candidate for procedure/moderate/conscious sedation, Risks/benefits of procedure/sedation discussed w/ patient/family Cardiac Registry (Cardio Only) - Functional Capacity Functional Capacity: >=4 METS with symptoms - Clincal Frailty Scale Clinical Frailty Scale: Vulnerable
[2018-05-02] MEDS ORDERED: *HR* Midazolam HCl 2 MG/2 ML VIAL ONE (10:24)
[2018-05-02] MEDS ORDERED: *HR* FentaNYL (PF) 100 MCG/2 ML VIAL ONE (10:24)
[2018-05-02] MEDS ORDERED: *HR* Bivalirudin 250 MG VIAL IVC ONE (10:27)
[2018-05-02] MEDS: Aspirin Enteric Coated 81 MG Tablet PO SCH (10:29)
[2018-05-02] MEDS: Heparin 25,000 UNIT/500 ML D5W 25,000 UNIT/500 ML BAG IVC SCH (11:56)
--- NOTE | 2018-05-02 12:27 | Discharge Summary ---
- NOTES TO OUTPATIENT PROVIDER Notes to Outpatient Provider: Follow up with PCP in one week. Please start taking Coreg 3.125mg BID, Lisinopril 2.5mg PO Daily and Lipitor 40mg HS. you need a follow-up echocardiogram in 6 weeks - Please talk to your PCP. Orders not resulted at time of discharge: Pending orders 05/02/18 22:30 Heparin anti-factor XA UFH [COAG] Timed Date of Encounter: 05/02/18 Time of Encounter: 12:21 - Discharge Diagnosis (1) NSTEMI (non-ST elevated myocardial infarction) Priority: Primary Status: Acute (2) Systolic CHF, acute Priority: Primary Status: Acute (3) Bigeminy Priority: Secondary Status: Acute (4) Hypertensive urgency Priority: Secondary Status: Acute (5) DVT prophylaxis Priority: Secondary Status: Acute (6) Non-ischemic cardiomyopathy Priority: Secondary Status: Acute (7) Takotsubo cardiomyopathy Priority: Secondary Status: Acute Hospital course: Ms. Cruz is a 63 year old female known past medical history of hypertension, hyperlipidemia who is off the BP meds ( Valsartan ) 17 months ago since her BP well controlled, now she presented to ER with the sudden onset of palpitations and chest heaviness and discomfort. In the emergency room patient's initial vital signs showed a blood pressure of 204/99 and initial troponin was undetectable. Her EKG showed bigeminy with a rate of 108. Patient was admitted in the ICU and started her on Nicardipine drip. She denied any CP / SOB. She denied any PND, orthopnea and MARKS. However her Troponin started trending high which peaked at 1.54. Her 2 D Echo showed Systolic dysfunction with EF @ 40-45%. Pt was evaluated by Cardiology who did LHC today which came back as compeltely normal. Her non-ischemic cardiomyopathy mostly due to takotsubo cardiomyopathy. So started her on ASA, Statin, low dose BB Coreg 3.125 and Lisinopril 2.5mg. Will d/c her home in stable condition today. She needs a follow-up echocardiogram in 6 weeks. - Time Spent with Patient Total time spent providing and/or coordinating discharge services: - Discharge Medications Prescriptions: Aspirin [Lo-Dose Aspirin EC] 81 mg PO DAILY #30 tablet. Atorvastatin [Lipitor] 40 mg PO HS #30 tablet Carvedilol [Coreg] 3.125 mg PO BIDWM #15 tablet Lisinopril [Zestril] 2.5 mg PO DAILY #15 tablet Home Medications: Cholecalciferol (D-3) [Vitamin D] 5,000 unit PO DAILY 01/17/17 [History] Docusate [Colace] 100 mg PO BID #30 capsule 01/17/17 [Rx] Estradiol [Yuvafem] 10 mcg VG QWEEK 01/17/17 [History] Omeprazole [PriLOSEC] 40 mg PO DAILY 01/17/17 [History] Sucralfate [Carafate] 1 gm PO QIDAC 01/17/17 [History] Aspirin [Lo-Dose Aspirin EC] 81 mg PO DAILY #30 tablet. 05/02/18 [Rx] Atorvastatin [Lipitor] 40 mg PO HS #30 tablet 05/02/18 [Rx] Carvedilol [Coreg] 3.125 mg PO BIDWM #15 tablet 05/02/18 [Rx] Lisinopril [Zestril] 2.5 mg PO DAILY #15 tablet 05/02/18 [Rx] Allergies/Adverse Reactions: Allergy/AdvReac Type Severity Reaction Status Date / Time gabapentin AdvReac Palpitation Verified 05/01/18 00:20 s Date of admission: 05/01/18 12:43 Primary care physician: Barber Stokes DO Consults: 05/01/18 00:10 Consult to Cardiology [CONS] Stat Comment: Consulting Provider: Cardiology Mayra Reason for Consult: bigeminbraden Time Notified: 00:10 Call Completed: Yes 05/02/18 09:24 Consult to Nurse Navigator [CONS] Routine Comment: CHF - Constitutional Vitals: Temp Pulse Resp BP Pulse Ox 97.7 F 72 16 116/78 95 05/02/18 07:04 05/02/18 11:40 05/02/18 11:40 05/02/18 11:40 05/02/18 11:40 General appearance: Present: cooperative, pleasant, no acute distress, answers questions appropriately Exam: Gen: Alert, awake, Oriented to time,place and person Chest: Diminished breath sounds B/L, No wheezing, No crackles, No rales Heart: S1S2+ RRR No murmurs Abd: Soft, NT, BS +, No organomegaly Ext: No edema, pulses are palpable, No calf tenderness Neuro : Benign findings Skin: No rash. - Patient Status Disposition: Home, Self-Care Condition: Good Overall status at discharge: patient is back to baseline - Discharge Instructions Follow Up With: Pillo Stokes DO [Primary Care Provider] - (Appointment has been requested ) - Diet and Activity Activity: increase activity as tolerated Diet: low salt diet
--- NOTE | 2018-05-02 13:52 | Event Note ---
Date of Encounter: 05/02/18 Time of Encounter: 13:50 - Cardiology Event Note C report reviewed without any significant CAD, however LV gram with takotsubos cardiomyopathy. On BB, started on rambo inhibitor. Cardiology will sign off, will arrange outpatient follow up.
[2018-05-02 14:53] VITALS: BP 115/75
--- NOTE | 2018-05-02 20:45 | Electrocardiograph Report ---
[address] [place], [place] [address] Test Date: 2018-04-30 Pat Name: Carol Cruz Department: EXAM3 Room: 3B54 Gender: F [facility]: : 1955 Requested By: Xavier Martinez Order Number: [id number] Reading MD: Gabriela Fernández Measurements Intervals [place] Rate: 108 P: 71 AK: 130 QRS: 59 QRSD: 78 T: 261 QT: 280 QTc: 298 Interpretive Statements Sinus tachycardia with ventricular bigeminy ST-T abnormalities, consider ischemia Electronically Signed On 05-02-2018 20:43:29 EST by Gabriela Fernández
--- NOTE | 2018-05-02 21:00 | Electrocardiograph Report ---
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
--- NOTE | 2018-05-02 21:05 | Electrocardiograph Report ---
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
== END 2018-05-02 15:31 | disposition home or self-care (01) | DRG 280 ==
LOC: EMEROOARM 23:31 → ICNU 23:31 → SUATTDRO 05-01 01:48 → ICNU 05-01 02:26 → 3BNU 05-01 12:14
PROVIDERS: ADMIT Pediatrics; ATTEND Family Medicine

== ENCOUNTER 2019-07-14 13:00 | Observation (INO) ==
[2019-07-14 13:37] LABS: Basophils # 0.1 K/mcL (0.0-0.2); Basophils % 0.4 %; Hematocrit 46.6 % (35.3-44.9); Hemoglobin 15.1 g/dL (11.5-15.4); Immature Granulocytes % 0.3 % (0-4); Lymphocytes # 1.4 K/mcL (0.6-4.6); Lymphocytes % 11.3 %; Mean Corpuscular HGB Conc 32.4 g/dL (31.6-35.5); Mean Corpuscular Hemoglobin 30.6 pg (28.0-33.3); Mean Corpuscular Volume 94.3 fL (83.0-100.0); Neutrophils # 10.2 K/mcL (1.6-8.9); Platelet Count 316 K/mcL (140-400); Red Blood Count 4.94 M/mcL (3.82-4.97); Red Cell Distribution Width 12.5 % (11.5-14.5); White Blood Count 12.7 K/mcL (4.3-11.1)
[2019-07-14 13:39] LABS: INR 1.1; Prothrombin Time 12.5 Seconds (9.4-12.1)
[2019-07-14] MEDS ORDERED: 0.9 % Sodium Chloride 500 ML IVC ONE (13:40)
[2019-07-14] MEDS ORDERED: Ondansetron 4 MG/2 ML VIAL IVP ONE (13:40)
[2019-07-14 13:42] LABS: Activated Partial Thrombo Time 34.2 Seconds (26.0-36.0)
[2019-07-14] MEDS ORDERED: Isovue-370 500 ML BOTTLE IVP ONE (13:51)
[2019-07-14 13:52] LABS: Alanine Aminotransferase 27 Units/L (7-52); Albumin 4.6 g/dL (3.5-5.7); Albumin/Globulin Ratio 1.3 (1.1-2.2); Alkaline Phosphatase 80 Units/L (34-104); Aspartate Amino Transferase 27 Units/L (13-39); BUN/Creatinine Ratio 14 (6-26); Bilirubin,Total 0.6 mg/dL (0.3-1.0); Blood Urea Nitrogen 12 mg/dL (8-23); Calcium 9.9 mg/dL (8.6-10.3); Carbon Dioxide 26 mEq/L (23-29); Chloride 104 mEq/L (98-107); Globulin 3.5 g/dL (2.4-3.5); Glucose 124 mg/dL (70-105); Osmolality,Calculated 295 (280-300); Potassium 4.1 mEq/L (3.5-5.1); Sodium 142 mEq/L (136-145); Total Protein 8.1 g/dL (6.4-8.9); eGFR For African Americans > 60 (> 60); eGFR For Non-African Americans > 60 (> 60)
[2019-07-14 14:08] LABS: Bacteria,Urine None Seen per hpf (None-Few); Bilirubin,Urine Small (Negative); Blood,Urine Negative (Negative); Color,Urine Yellow (Yellow); Glucose,Urine (UA) 100 mg/dL (Normal); Hyaline Casts,Urine Moderate per lpf (None-Few); Ketones,Urine Trace mg/dL (Negative); Leukocyte Esterase,Urine Small (Negative); Nitrite,Urine Negative (Negative); Protein,Urine 100 mg/dL (Neg-Trace); Specific Gravity,Urine 1.021 (1.010-1.025); Squamous Epithelial Cell,Urine Moderate per lpf (None-Few); Urobilinogen,Urine Normal (Normal); WBC,Urine 15-30 per hpf (0-3)
[2019-07-14 14:09] LABS: Clarity,Urine Slightly Cloudy (Clear)
[2019-07-14] MEDS ORDERED: Ondansetron 4 MG/2 ML VIAL IVP PRN (16:41)
[2019-07-14] MEDS ORDERED: Naloxone 0.4 MG/ML INJ IVP PRN (16:41)
[2019-07-14] MEDS ORDERED: Acetaminophen 325 MG TABLET PO PRN (17:29)
[2019-07-14] MEDS: 0.9 % Sodium Chloride 1,000 ML IVC SCH (18:16)
[2019-07-14] MEDS: *HR* Heparin 5,000 UNIT/ML VIAL SQ SCH (18:16)
[2019-07-15] MEDS: 0.9 % Sodium Chloride 1,000 ML IVC SCH (02:26)
[2019-07-15 02:55] LABS: Basophils # 0.1 K/mcL (0.0-0.2); Basophils % 0.5 %; Eosinophils # 0.1 K/mcL (0.0-0.6); Eosinophils % 0.5 %; Hematocrit 38.8 % (35.3-44.9); Hemoglobin 12.4 g/dL (11.5-15.4); Immature Granulocytes % 0.2 % (0-4); Lymphocytes # 2.9 K/mcL (0.6-4.6); Lymphocytes % 30.8 %; Mean Corpuscular Hemoglobin 31.1 pg (28.0-33.3); Mean Corpuscular Volume 97.2 fL (83.0-100.0); Mean Platelet Volume 10.3 fL (9.4-12.4); Monocytes # 0.7 K/mcL (0.0-1.3); Monocytes % 7.4 %; Neutrophils # 5.8 K/mcL (1.6-8.9); Platelet Count 236 K/mcL (140-400); Red Blood Count 3.99 M/mcL (3.82-4.97); Red Cell Distribution Width 12.8 % (11.5-14.5); Segmented Neutrophils % 60.6 %; White Blood Count 9.6 K/mcL (4.3-11.1)
[2019-07-15 03:16] LABS: BUN/Creatinine Ratio 23 (6-26); Blood Urea Nitrogen 15 mg/dL (8-23); Calcium 9.1 mg/dL (8.6-10.3); Carbon Dioxide 24 mEq/L (23-29); Chloride 111 mEq/L (98-107); Glucose 91 mg/dL (70-105); Magnesium 2.1 mg/dL (1.6-2.6); Osmolality,Calculated 292 (280-300); Phosphorous 3.3 mg/dL (2.7-4.5); Potassium 3.9 mEq/L (3.5-5.1); Sodium 141 mEq/L (136-145); eGFR For African Americans > 60 (> 60); eGFR For Non-African Americans > 60 (> 60)
[2019-07-15] MEDS: *HR* Heparin 5,000 UNIT/ML VIAL SQ SCH (04:49)
[2019-07-15] MEDS ORDERED: 0.9 % Sodium Chloride 1,000 ML IVC SCH (08:08)
[2019-07-15] MEDS ORDERED: Aspirin Enteric Coated 81 MG Tablet PO SCH (09:00)
[2019-07-15] MEDS ORDERED: Cholecalciferol (D-3) 1,000 UNIT (25MCG) TABLET PO SCH (09:00)
[2019-07-15 11:11] VITALS: BP 116/74
== END 2019-07-15 13:09 | disposition home or self-care (01) ==
LOC: EMEROOARM 13:00 → 3BNU 13:00
PROVIDERS: ADMIT Internal Medicine; ATTEND Internal Medicine

== ENCOUNTER 2019-07-15 17:58 | Inpatient (IN) ==
[2019-07-15 19:31] LABS: Prothrombin Time 11.8 Seconds (9.4-12.1)
[2019-07-15 19:33] LABS: Activated Partial Thrombo Time 32.4 Seconds (26.0-36.0)
[2019-07-15 19:41] LABS: Hematocrit 40.7 % (35.3-44.9); Mean Corpuscular HGB Conc 31.9 g/dL (31.6-35.5); Mean Corpuscular Hemoglobin 30.6 pg (28.0-33.3); Mean Corpuscular Volume 95.8 fL (83.0-100.0); Platelet Count 263 K/mcL (140-400); Red Blood Count 4.25 M/mcL (3.82-4.97); Red Cell Distribution Width 12.8 % (11.5-14.5); White Blood Count 8.3 K/mcL (4.3-11.1)
[2019-07-15 19:42] LABS: Basophils # 0.1 K/mcL (0.0-0.2); Basophils % 0.8 %; Eosinophils % 0.4 %; Immature Granulocytes % 0.2 % (0-4); Lymphocytes # 1.5 K/mcL (0.6-4.6); Lymphocytes % 17.6 %; Mean Platelet Volume 10.3 fL (9.4-12.4); Monocytes # 0.5 K/mcL (0.0-1.3); Neutrophils # 6.2 K/mcL (1.6-8.9)
[2019-07-15 19:47] LABS: BUN/Creatinine Ratio 28 (6-26); Blood Urea Nitrogen 20 mg/dL (8-23); Calcium 9.5 mg/dL (8.6-10.3); Carbon Dioxide 26 mEq/L (23-29); Chloride 109 mEq/L (98-107); Glucose 166 mg/dL (70-105); Osmolality,Calculated 300 (280-300); Potassium 4.3 mEq/L (3.5-5.1); Sodium 142 mEq/L (136-145); Troponin I 0.04 ng/mL (< 0.04); eGFR For African Americans > 60 (> 60); eGFR For Non-African Americans > 60 (> 60)
[2019-07-15] MEDS ORDERED: Aspirin 325 MG TABLET PO ONE (19:50)
[2019-07-15] MEDS ORDERED: Metoclopramide 10 MG/2 ML VIAL IVP ONE (21:49)
[2019-07-15] MEDS ORDERED: Naloxone 0.4 MG/ML INJ IVP PRN (21:51)
[2019-07-16] MEDS: Ondansetron 4 MG/2 ML VIAL IVP PRN ×4 (00:10→21:28)
[2019-07-16] MEDS ORDERED: carvediloL 6.25 MG TABLET PO ONE (00:39)
[2019-07-16 01:40] LABS: Hematocrit 44.2 % (35.3-44.9); Hemoglobin 14.2 g/dL (11.5-15.4); Mean Corpuscular HGB Conc 32.1 g/dL (31.6-35.5); Mean Corpuscular Hemoglobin 30.3 pg (28.0-33.3); Mean Corpuscular Volume 94.2 fL (83.0-100.0); Mean Platelet Volume 10.8 fL (9.4-12.4); Platelet Count 297 K/mcL (140-400); Red Blood Count 4.69 M/mcL (3.82-4.97); Red Cell Distribution Width 12.8 % (11.5-14.5)
[2019-07-16 01:43] LABS: White Blood Count 14.3 K/mcL (4.3-11.1)
[2019-07-16 02:30] LABS: BUN/Creatinine Ratio 24 (6-26); Blood Urea Nitrogen 18 mg/dL (8-23); Calcium 9.6 mg/dL (8.6-10.3); Carbon Dioxide 21 mEq/L (23-29); Chloride 106 mEq/L (98-107); Glucose 239 mg/dL (70-105); Osmolality,Calculated 304 (280-300); Potassium 3.2 mEq/L (3.5-5.1); Sodium 142 mEq/L (136-145); eGFR For African Americans > 60 (> 60); eGFR For Non-African Americans > 60 (> 60)
[2019-07-16] MEDS: Multivit/Ca/Min/Fe/FA 1 TAB TABLET PO SCH (07:52)
[2019-07-16] MEDS: Aspirin Enteric Coated 81 MG Tablet PO SCH (07:52)
[2019-07-16] MEDS: Cholecalciferol (D-3) 1,000 UNIT (25MCG) TABLET PO SCH (07:52)
[2019-07-16] MEDS ORDERED: carvediloL 6.25 MG TABLET PO SCH (08:00)
[2019-07-16] MEDS ORDERED: lisinopriL 5 MG TABLET PO SCH (09:00)
[2019-07-16] MEDS ORDERED: 0.9 % Sodium Chloride 1,000 ML IVC SCH ×2 (09:30→13:06)
[2019-07-16] MEDS ORDERED: Potassium Chloride Elixir 20 MEQ/15 ML UDC PO SCH (10:30)
[2019-07-16] MEDS ORDERED: Cosyntropin 250 MCG/2 ML VIAL IVP ONE (10:52)
[2019-07-16] MEDS ORDERED: *HR* Metoprolol 5 MG/5 ML VIAL IVP ONE (17:54)
[2019-07-16] MEDS: 0.9 % Sodium Chloride 1,000 ML IVC SCH (21:24)
[2019-07-17] MEDS: 0.9 % Sodium Chloride 1,000 ML IVC SCH ×3 (05:53→18:31)
[2019-07-17 06:42] LABS: Basophils # 0.1 K/mcL (0.0-0.2); Basophils % 0.6 %; Eosinophils % 0.3 %; Hematocrit 39.3 % (35.3-44.9); Immature Granulocytes % 0.2 % (0-4); Lymphocytes # 2.6 K/mcL (0.6-4.6); Lymphocytes % 28.7 %; Mean Corpuscular HGB Conc 32.1 g/dL (31.6-35.5); Mean Corpuscular Hemoglobin 30.9 pg (28.0-33.3); Mean Corpuscular Volume 96.3 fL (83.0-100.0); Mean Platelet Volume 10.7 fL (9.4-12.4); Monocytes # 0.6 K/mcL (0.0-1.3); Monocytes % 7.2 %; Neutrophils # 5.6 K/mcL (1.6-8.9); Platelet Count 212 K/mcL (140-400); Red Blood Count 4.08 M/mcL (3.82-4.97); Red Cell Distribution Width 12.9 % (11.5-14.5)
[2019-07-17 06:47] LABS: Hemoglobin 12.6 g/dL (11.5-15.4)
[2019-07-17 07:03] LABS: BUN/Creatinine Ratio 20 (6-26); Blood Urea Nitrogen 11 mg/dL (8-23); Calcium 9.3 mg/dL (8.6-10.3); Carbon Dioxide 23 mEq/L (23-29); Chloride 111 mEq/L (98-107); Glucose 79 mg/dL (70-105); Magnesium 1.9 mg/dL (1.6-2.6); Osmolality,Calculated 294 (280-300); Phosphorous 3.8 mg/dL (2.7-4.5); Potassium 3.5 mEq/L (3.5-5.1); Sodium 143 mEq/L (136-145); eGFR For African Americans > 60 (> 60); eGFR For Non-African Americans > 60 (> 60)
[2019-07-17] MEDS: Multivit/Ca/Min/Fe/FA 1 TAB TABLET PO SCH (08:44)
[2019-07-17] MEDS: Aspirin Enteric Coated 81 MG Tablet PO SCH (08:44)
[2019-07-17] MEDS: Cholecalciferol (D-3) 1,000 UNIT (25MCG) TABLET PO SCH (08:44)
[2019-07-17 09:07] LABS: Troponin I 0.09 ng/mL (< 0.04)
[2019-07-17] MEDS ORDERED: Isovue-370 500 ML BOTTLE IVP ONE (13:13)
[2019-07-18] MEDS: 0.9 % Sodium Chloride 1,000 ML IVC SCH (02:19)
[2019-07-18 02:24] LABS: Basophils # 0.1 K/mcL (0.0-0.2); Basophils % 0.8 %; Eosinophils # 0.1 K/mcL (0.0-0.6); Eosinophils % 1.3 %; Hematocrit 35.7 % (35.3-44.9); Hemoglobin 11.5 g/dL (11.5-15.4); Immature Granulocytes % 0.3 % (0-4); Lymphocytes # 2.4 K/mcL (0.6-4.6); Lymphocytes % 38.9 %; Mean Corpuscular HGB Conc 32.2 g/dL (31.6-35.5); Mean Corpuscular Hemoglobin 30.7 pg (28.0-33.3); Mean Corpuscular Volume 95.2 fL (83.0-100.0); Mean Platelet Volume 10.8 fL (9.4-12.4); Monocytes # 0.5 K/mcL (0.0-1.3); Monocytes % 7.3 %; Neutrophils # 3.2 K/mcL (1.6-8.9); Platelet Count 195 K/mcL (140-400); Red Blood Count 3.75 M/mcL (3.82-4.97); Segmented Neutrophils % 51.4 %; White Blood Count 6.3 K/mcL (4.3-11.1)
[2019-07-18 02:50] LABS: BUN/Creatinine Ratio 28 (6-26); Blood Urea Nitrogen 16 mg/dL (8-23); Carbon Dioxide 24 mEq/L (23-29); Chloride 110 mEq/L (98-107); Glucose 90 mg/dL (70-105); Magnesium 1.7 mg/dL (1.6-2.6); Osmolality,Calculated 293 (280-300); Phosphorous 3.3 mg/dL (2.7-4.5); Potassium 3.9 mEq/L (3.5-5.1); Sodium 141 mEq/L (136-145); eGFR For African Americans > 60 (> 60); eGFR For Non-African Americans > 60 (> 60)
[2019-07-18] MEDS: Cholecalciferol (D-3) 1,000 UNIT (25MCG) TABLET PO SCH (08:08)
[2019-07-18] MEDS: Aspirin Enteric Coated 81 MG Tablet PO SCH (08:08)
[2019-07-18] MEDS: Multivit/Ca/Min/Fe/FA 1 TAB TABLET PO SCH (08:09)
[2019-07-18] MEDS ORDERED: *HR* Labetalol 20 MG/4 ML SYRINGE IVP PRN (19:01)
[2019-07-19 03:08] LABS: Basophils # 0.1 K/mcL (0.0-0.2); Basophils % 0.8 %; Eosinophils # 0.1 K/mcL (0.0-0.6); Eosinophils % 0.8 %; Hematocrit 34.9 % (35.3-44.9); Hemoglobin 11.4 g/dL (11.5-15.4); Immature Granulocytes % 0.1 % (0-4); Lymphocytes % 27.2 %; Mean Corpuscular HGB Conc 32.7 g/dL (31.6-35.5); Mean Corpuscular Hemoglobin 31.1 pg (28.0-33.3); Mean Corpuscular Volume 95.1 fL (83.0-100.0); Mean Platelet Volume 11.1 fL (9.4-12.4); Monocytes # 0.6 K/mcL (0.0-1.3); Monocytes % 8.6 %; Neutrophils # 4.7 K/mcL (1.6-8.9); Platelet Count 211 K/mcL (140-400); Red Blood Count 3.67 M/mcL (3.82-4.97); Red Cell Distribution Width 12.6 % (11.5-14.5); Segmented Neutrophils % 62.5 %; White Blood Count 7.4 K/mcL (4.3-11.1)
[2019-07-19 03:25] LABS: BUN/Creatinine Ratio 28 (6-26); Blood Urea Nitrogen 18 mg/dL (8-23); Calcium 9.2 mg/dL (8.6-10.3); Carbon Dioxide 28 mEq/L (23-29); Chloride 107 mEq/L (98-107); Glucose 98 mg/dL (70-105); Magnesium 1.9 mg/dL (1.6-2.6); Osmolality,Calculated 300 (280-300); Phosphorous 4.4 mg/dL (2.7-4.5); Potassium 3.7 mEq/L (3.5-5.1); Sodium 144 mEq/L (136-145); eGFR For African Americans > 60 (> 60); eGFR For Non-African Americans > 60 (> 60)
[2019-07-19] MEDS: Multivit/Ca/Min/Fe/FA 1 TAB TABLET PO SCH (08:08)
[2019-07-19] MEDS: Cholecalciferol (D-3) 1,000 UNIT (25MCG) TABLET PO SCH (08:09)
[2019-07-19] MEDS: Aspirin Enteric Coated 81 MG Tablet PO SCH (08:09)
[2019-07-19] MEDS: lisinopriL 5 MG TABLET PO SCH (11:49)
[2019-07-19] MEDS ORDERED: Acetaminophen 325 MG TABLET PO PRN (17:46)
[2019-07-20 04:13] LABS: Basophils # 0.1 K/mcL (0.0-0.2); Basophils % 0.9 %; Eosinophils # 0.1 K/mcL (0.0-0.6); Eosinophils % 1.7 %; Hematocrit 35.5 % (35.3-44.9); Hemoglobin 11.5 g/dL (11.5-15.4); Immature Granulocytes % 0.1 % (0-4); Lymphocytes # 2.3 K/mcL (0.6-4.6); Lymphocytes % 33.6 %; Mean Corpuscular HGB Conc 32.4 g/dL (31.6-35.5); Mean Corpuscular Hemoglobin 30.9 pg (28.0-33.3); Mean Corpuscular Volume 95.4 fL (83.0-100.0); Mean Platelet Volume 10.9 fL (9.4-12.4); Monocytes # 0.6 K/mcL (0.0-1.3); Monocytes % 8.6 %; Neutrophils # 3.8 K/mcL (1.6-8.9); Platelet Count 204 K/mcL (140-400); Red Blood Count 3.72 M/mcL (3.82-4.97); Red Cell Distribution Width 12.8 % (11.5-14.5); Segmented Neutrophils % 55.1 %
[2019-07-20 04:33] LABS: BUN/Creatinine Ratio 32 (6-26); Blood Urea Nitrogen 20 mg/dL (8-23); Calcium 9.3 mg/dL (8.6-10.3); Carbon Dioxide 27 mEq/L (23-29); Chloride 109 mEq/L (98-107); Glucose 117 mg/dL (70-105); Magnesium 2.1 mg/dL (1.6-2.6); Osmolality,Calculated 300 (280-300); Phosphorous 4.6 mg/dL (2.7-4.5); Potassium 3.7 mEq/L (3.5-5.1); Sodium 143 mEq/L (136-145); eGFR For African Americans > 60 (> 60); eGFR For Non-African Americans > 60 (> 60)
[2019-07-20] MEDS: Cholecalciferol (D-3) 1,000 UNIT (25MCG) TABLET PO SCH (10:30)
[2019-07-20] MEDS: Aspirin Enteric Coated 81 MG Tablet PO SCH (10:31)
[2019-07-20] MEDS: lisinopriL 5 MG TABLET PO SCH (10:31)
[2019-07-20] MEDS: Multivit/Ca/Min/Fe/FA 1 TAB TABLET PO SCH (10:32)
[2019-07-20 16:31] VITALS: BP 127/80
[2019-07-22 17:05] LABS: Urine Collection Volume 1850 mL
[2019-07-23 06:52] LABS: Urine Creatinine mg/d 944 mg/d (500-1400)
[2019-07-23 10:43] LABS: Urine Collection Volume 1850 mL
[2019-07-23 11:37] LABS: Urine Creatinine mg/d 944 mg/d (500-1400)
[2019-07-24 18:00] LABS: Metanephrine, Plasma 7.42 nmol/L (0.00-0.49)
== END 2019-07-20 18:55 | disposition home or self-care (01) | DRG 305 ==
LOC: 3BNU 17:58 → EMEROOARM 17:58 → 2ANU 21:05 → SUATTDRO 07-17 14:30
PROVIDERS: ADMIT Student in an Organized Health Care Education/Training Program; ATTEND Internal Medicine

== ENCOUNTER 2021-08-01 20:01 | Observation (INO) ==
[2021-08-01] MEDS ORDERED: Isovue-370 500 ML BOTTLE IVP ONE (20:13)
[2021-08-01 20:23] LABS: Basophils # 0.1 K/mcL (0.0-0.2); Basophils % 0.7 %; Eosinophils # 0.2 K/mcL (0.0-0.6); Eosinophils % 2.3 %; Hematocrit 36.1 % (35.3-44.9); Immature Granulocytes % 0.1 % (0-4); Lymphocytes # 2.5 K/mcL (0.6-4.6); Lymphocytes % 35.1 %; Mean Corpuscular HGB Conc 33.2 g/dL (31.6-35.5); Mean Corpuscular Hemoglobin 31.3 pg (28.0-33.3); Mean Platelet Volume 9.6 fL (9.4-12.4); Monocytes # 0.7 K/mcL (0.0-1.3); Monocytes % 9.2 %; Neutrophils # 3.7 K/mcL (1.6-8.9); Platelet Count 268 K/mcL (140-400); Red Blood Count 3.84 M/mcL (3.82-4.97); Red Cell Distribution Width 12.8 % (11.5-14.5); Segmented Neutrophils % 52.6 %
[2021-08-01 20:30] LABS: Prothrombin Time 11.2 Seconds (9.4-12.1)
[2021-08-01 20:45] LABS: Alanine Aminotransferase 14 Units/L (7-52); Albumin 4.3 g/dL (3.5-5.7); Albumin/Globulin Ratio 1.5 (1.1-2.2); Alkaline Phosphatase 67 Units/L (34-104); Aspartate Amino Transferase 19 Units/L (13-39); BUN/Creatinine Ratio 20 (6-26); Bilirubin,Direct 0.1 mg/dL (0.0-0.2); Bilirubin,Indirect 0.8 mg/dL (0.0-1.0); Bilirubin,Total 0.9 mg/dL (0.3-1.0); Blood Urea Nitrogen 17 mg/dL (8-23); Calcium 9.4 mg/dL (8.6-10.3); Carbon Dioxide 27 mEq/L (23-29); Chloride 105 mEq/L (98-107); Globulin 2.9 g/dL (2.4-3.5); Glucose 123 mg/dL (70-105); Osmolality,Calculated 291 (280-300); Potassium 3.8 mEq/L (3.5-5.1); Sodium 139 mEq/L (136-145); Total Protein 7.2 g/dL (6.4-8.9); Troponin I < 0.03 ng/mL (< 0.04); eGFR For African Americans > 60 (> 60); eGFR For Non-African Americans > 60 (> 60)
[2021-08-01] MEDS ORDERED: Gadolinium Contrast Agent (WT Based) IV PRN (21:44)
[2021-08-01] MEDS ORDERED: Acetaminophen 325 MG TABLET PO PRN (21:44)
[2021-08-01] MEDS ORDERED: *HR* HYDROcodone/Acet 5/325 mg TABLET PO PRN (21:44)
[2021-08-01] MEDS ORDERED: Melatonin 3 MG TABLET PO PRN (21:44)
[2021-08-01] MEDS ORDERED: Naloxone 0.4 MG/ML INJ IVP PRN (21:44)
[2021-08-01] MEDS ORDERED: *HR* OxyCODONE Immed Rel 5 MG TABLET PO PRN (21:44)
[2021-08-01] MEDS ORDERED: Ondansetron ODT 4 MG TAB.RAPDIS SL PRN (21:44)
[2021-08-01] MEDS ORDERED: Perflutren Lipid Microsphere 1.3 ML in 0.9 % Sodium Chloride 8.7 ML IVP PRN (21:44)
[2021-08-01] MEDS ORDERED: 0.9 % Sodium Chloride 1,000 ML IVC SCH (21:45)
[2021-08-01] MEDS ORDERED: Aspirin 81 MG TAB.CHEW PO ONE (21:53)
[2021-08-01 22:30] LABS: Bilirubin,Urine Negative (Negative); Blood,Urine Negative (Negative); Clarity,Urine Clear (Clear); Color,Urine Colorless (Yellow); Glucose,Urine (UA) Normal (Normal); Ketones,Urine Negative (Negative); Leukocyte Esterase,Urine Negative (Negative); Nitrite,Urine Negative (Negative); PH,Urine 7.5 pH Units (5.0-8.0); Protein,Urine Negative (Neg-Trace); Specific Gravity,Urine 1.027 (1.010-1.025); Urobilinogen,Urine Normal (Normal)
[2021-08-01 22:42] LABS: Amphetamine Screen,Urine Negative ng/mL (Cutoff=1000); Barbiturate Screen,Urine Negative ng/mL (Cutoff=200); Benzodiazepines Screen,Urine Negative ng/mL (Cutoff=200); Cannabinoid Screen,Urine Positive ng/mL (Cutoff = 50); Cocaine Screen,Urine Negative ng/mL (Cutoff= 300); Opiate Screen,Urine Negative ng/mL (Cutoff=300); Phencyclidine Screen,Urine Negative ng/mL (Cutoff=25)
[2021-08-02 01:11] LABS: Hematocrit 32.4 % (35.3-44.9); Hemoglobin 10.6 g/dL (11.5-15.4); Mean Corpuscular HGB Conc 32.7 g/dL (31.6-35.5); Mean Corpuscular Hemoglobin 30.8 pg (28.0-33.3); Mean Corpuscular Volume 94.2 fL (83.0-100.0); Platelet Count 266 K/mcL (140-400); Red Blood Count 3.44 M/mcL (3.82-4.97); Red Cell Distribution Width 12.7 % (11.5-14.5); White Blood Count 6.8 K/mcL (4.3-11.1)
[2021-08-02 01:19] LABS: Prothrombin Time 11.6 Seconds (9.4-12.1)
[2021-08-02 01:40] LABS: Alanine Aminotransferase 12 Units/L (7-52); Albumin 3.8 g/dL (3.5-5.7); Albumin/Globulin Ratio 1.5 (1.1-2.2); Alkaline Phosphatase 60 Units/L (34-104); Aspartate Amino Transferase 17 Units/L (13-39); BUN/Creatinine Ratio 22 (6-26); Bilirubin,Total 0.8 mg/dL (0.3-1.0); Blood Urea Nitrogen 16 mg/dL (8-23); Calcium 8.9 mg/dL (8.6-10.3); Carbon Dioxide 26 mEq/L (23-29); Chloride 105 mEq/L (98-107); Chol/HDL Ratio 2.2 (0-4.9); Cholesterol 139 mg/dL (< 200); Globulin 2.6 g/dL (2.4-3.5); Glucose 130 mg/dL (70-105); HDL Cholesterol 64 mg/dL (40-59); LDL Cholesterol,Calculated 61 mg/dL (< 100); Osmolality,Calculated 289 (280-300); Potassium 4.2 mEq/L (3.5-5.1); Sodium 138 mEq/L (136-145); Total Protein 6.4 g/dL (6.4-8.9); Triglycerides 69 mg/dL (< 150); Troponin I < 0.03 ng/mL (< 0.04); eGFR For African Americans > 60 (> 60); eGFR For Non-African Americans > 60 (> 60)
[2021-08-02 04:10] LABS: Estimated Average Glucose 100 mg/dl; Hemoglobin A1C 5.1 %
[2021-08-02] MEDS ORDERED: Aspirin Enteric Coated 81 MG Tablet PO SCH (09:00)
[2021-08-02 12:10] VITALS: PULSE 59; TEMP 98; O2SAT 99
[2021-08-02 12:51] VITALS: BP 126/76
== END 2021-08-02 15:17 | disposition home or self-care (01) ==
LOC: 3BNU 20:01 → EMEROOARM 20:01 → SUATTDRO 21:55 → 3BNU 22:31
PROVIDERS: ADMIT Internal Medicine; ATTEND Registered Nurse